=== PATIENT | male | born 1970 | race African-American/Black ===

== ENCOUNTER 2023-09-21 04:45 | Emergency (ER) | payer BC ==
[2023-09-21] MEDS ORDERED: methylPREDNISolone Sod Succ 125 MG/2 ML VIAL IV ONE (05:00)
[2023-09-21] MEDS ORDERED: Famotidine 20 MG/2 ML VIAL IV ONE (05:00)
[2023-09-21] MEDS ORDERED: diphenhydrAMINE 50 MG/ML 1 ML VIAL IV ONE (05:00)
[2023-09-21 05:14] LABS: ALBUMIN 4.3 g/dL (3.5-5.0); BASO # 0.02 K/mm3 (0.02-0.10); EOS # 0.15 K/mm3 (0.04-0.40); EOS % 2.5 % (0.0-4.0); HEMATOCRIT 46.7 % (42.0-52.0); HEMOGLOBIN 15.3 g/dL (13.5-18.0); LYMPH# 1.61 K/mm3 (1.50-4.00); MEAN CELL VOLUME 86 fl (78-100); MEAN CORPUSCULAR HEMOGLOBIN 28 pg (27-31); MEAN CORPUSCULAR HGB CONC 33 g/dL (33-37); MEAN PLATELET VOLUME 10.4 fl (7.4-10.4); MONO # 0.59 K/mm3 (0.20-0.80); NEU # 3.58 K/mm3 (1.40-6.50); PLATELET COUNT 190 K/mm3 (130-400); RED BLOOD COUNT 5.43 M/mm3 (4.20-5.60); RED CELL DISTRIBUTION WIDTH 14.7 % (11.5-14.5)
[2023-09-21 05:15] LABS: CALCIUM 9.2 mg/dL (8.3-10.5)
[2023-09-21 05:16] LABS: TOTAL PROTEIN 7.4 g/dL (6.4-8.3)
[2023-09-21 05:18] LABS: TOTAL BILIRUBIN 0.4 mg/dL (0.2-1.2)
[2023-09-21] MEDS ORDERED: PREDNISONE20 M1 PO (06:14)
[2023-09-21 07:16] LABS: URINE APPEARANCE CLEAR (CLEAR); URINE BILIRUBIN NEGATIVE (NEGATIVE); URINE BLOOD NEGATIVE (NEGATIVE); URINE COLOR YELLOW (YELLOW); URINE GLUCOSE NEGATIVE (NEGATIVE); URINE KETONE NEGATIVE (NEGATIVE); URINE LEUKOCYTE ESTERASE NEGATIVE (NEGATIVE); URINE NITRATE NEGATIVE (NEGATIVE); URINE PROTEIN(semi-quant) TRACE (NEGATIVE)
[2023-09-21 07:17] LABS: URINE MUCUS PRESENT (NOT PRESENT); URINE WBC 0-1 /hpf (0-3)
[2023-09-21 07:41] VITALS: BP 134/75
== END 2023-09-21 07:45 | disposition home or self-care (01) ==
LOC: ED 04:45
PROVIDERS: Family Medicine
DX: T78.40XA Allergy, unspecified, initial encounter (principal); E86.0 Dehydration; R79.89 Other specified abnormal findings of blood chemistry; Z87.891 Personal history of nicotine dependence; X58.XXXA Exposure to other specified factors, initial encounter
CPT/HCPCS: J1200; J2919; J3490; J7120